=== PATIENT | female | born 1980 | race Caucasian/White ===

== ENCOUNTER 2017-09-13 18:50 | Inpatient (IN) | payer OTHER ==
[~2017-09-13] VITALS: Ht 162.6 cm; Wt 97.1 kg
[2017-09-13] MEDS ORDERED: TERBUTALINE 1 MG/ML VIAL SUBQ ONE (20:19)
[2017-09-13] MEDS: TERBUTALINE 1 MG/ML VIAL SUBQ SCH ×2 (20:43→20:51)
[2017-09-13 20:48] VITALS: BP 90/60
[2017-09-13] MEDS: LACTATED RINGERS 1,000 ML IV SCH (21:00)
[2017-09-13] MEDS ORDERED: BETAMETH ACET/BETAMETH NA PH 30 MG/5 ML VIAL IM ONE ×2 (21:00→21:06)
[2017-09-13] MEDS ORDERED: NALBUPHINE 10 MG/ML AMP ONE (21:33)
[2017-09-13] MEDS ORDERED: PROMETHAZINE 25 MG/ML VIAL ONE (21:33)
[2017-09-13] MEDS ORDERED: PROMETHAZINE 25 MG/ML VIAL IVP ONE (21:40)
[2017-09-13] MEDS ORDERED: NALBUPHINE 10 MG/ML AMP IVP PRN (21:40)
[2017-09-13] MEDS ORDERED: PREN-546 PO (21:52)
[2017-09-13 22:03] LABS: BASOPHILS % (AUTO) 0.2 % (0.0-2.0); EOSINOPHILS # (AUTO) 0.1 K/uL (0-0.4); EOSINOPHILS % (AUTO) 0.7 % (0.0-4.0); HEMOGLOBIN 10.3 g/dL (12.0-16.0); LYMPHOCYTES # (AUTO) 2.4 K/uL (2.5-16.5); LYMPHOCYTES % (AUTO) 23.5 % (20.5-51.1); MEAN CORPUSCULAR HEMOGLOBIN 30 pg (27-31); MEAN CORPUSCULAR HGB CONC 33 g/dL (33-37); MEAN CORPUSCULAR VOLUME 90.8 fL (80-94); MONOCYTES # (AUTO) 0.6 K/uL (0.8-1.0); MONOCYTES % (AUTO) 6.2 % (1.7-9.3); NEUTROPHILS # (AUTO) 7.2 K/uL (1.8-7.7); NEUTROPHILS % (AUTO) 69.4 % (42.2-75.2); PLATELET COUNT (AUTO) 218 K/uL (140-450); RED BLOOD CELL COUNT(AUTO) 3.41 MIL/uL (4.20-5.40); RED CELL DISTRIBUTION WIDTH 14.8 % (11.6-13.7); WHITE BLOOD COUNT (AUTO) 10.4 K/uL (4.8-10.8)
[2017-09-13 22:17] LABS: APPEARANCE,URINE SL CLOUDY (CLEAR); BILIRUBIN,URINE NEGATIVE (NEGATIVE); BLOOD, URINE NEGATIVE (NEGATIVE); COLOR,URINE YELLOW (YELLOW); LEUKOCYTE ESTERASE ,URINE NEGATIVE (NEGATIVE); NITRITE, URINE NEGATIVE (NEGATIVE); PH,URINE 6.5 (5.0-9.0); UGLUCOSE NEGATIVE (NEGATIVE)
[2017-09-13 22:18] LABS: ALBUMIN 2.2 g/dL (3.4-5.0); ANION GAP 15.7 (8-16); CARBON DIOXIDE 20.9 mmol/L (21-32); CREATININE 0.9 mg/dL (0.6-1.3); TOTAL BILIRUBIN 0.2 mg/dL (0.0-1.0)
[2017-09-13 22:33] LABS: POTASSIUM 2.6 mmol/L (3.5-5.1)
[2017-09-13] MEDS ORDERED: POTASSIUM CHLORIDE 10 MEQ TABER PO SCH (22:35)
[2017-09-13 22:40] LABS: RBC,URINE 0-5 (RARE) /HPF (0-5); WBC,URINE 0-5 (RARE) /HPF (0-5)
[2017-09-14] MEDS: TERBUTALINE 2.5 MG TAB PO SCH ×4 (00:11→12:15)
[2017-09-14] MEDS ORDERED: TERBUTALINE 2.5 MG TAB ONE ×4 (00:12→12:17)
--- NOTE | 2017-09-14 08:57 | NUR ---
PATIENT HAS BEEN SCREENED AND CATEGORIZED LOW NUTRITION RISK. PATIENT WILL BE SEEN WITHIN 7 DAYS OF ADMISSION. 09/20/[address]
[2017-09-14] MEDS ORDERED: BETAMETH ACET/BETAMETH NA PH 30 MG/5 ML VIAL IM SCH (09:10)
[2017-09-14] MEDS ORDERED: BETAMETH ACET/BETAMETH NA PH 30 MG/5 ML VIAL IM ONE (09:36)
[2017-09-14] MEDS: LACTATED RINGERS 1,000 ML IV SCH (13:08)
[2017-09-14] MEDS ORDERED: BRE5 PO (15:03)
== END 2017-09-14 16:15 | disposition home or self-care (01) | DRG 563 ==
LOC: MLD 18:50
PROVIDERS: ADMIT Obstetrics & Gynecology; ATTEND Obstetrics & Gynecology
DX: O60.03 Preterm labor without delivery, third trimester (principal); O34.211 Maternal care for low transverse scar from previous cesarean delivery; Z3A.35 35 weeks gestation of pregnancy
CPT/HCPCS: 36415; 76805; 80053; 81001; 85025; 85379; 85384; 85610; 85730; 87086; J0702; J2300; J2550; J3105; J7120; Q0092

== ENCOUNTER 2017-09-25 14:29 | Inpatient (IN) | payer OTHER ==
[~2017-09-25] VITALS: Ht 152.4 cm; Wt 96.6 kg
[~2017-09-25 14:29] MED LIST: BRE5 PO; PREN-546 PO
[2017-09-25 15:11] VITALS: BP 107/68
== END 2017-09-25 16:38 | disposition home or self-care (01) | DRG 566 ==
LOC: MLD 14:29
PROVIDERS: ADMIT Obstetrics & Gynecology; ATTEND Obstetrics & Gynecology
DX: O26.893 Other specified pregnancy related conditions, third trimester (principal); Z3A.00 Weeks of gestation of pregnancy not specified
CPT/HCPCS: 59025; 76815; 81000; 87070; Q0092

== ENCOUNTER 2017-09-28 07:59 | Inpatient (IN) | payer OTHER ==
[~2017-09-28] VITALS: Ht 160 cm; Wt 96.6 kg
[2017-09-28] MEDS ORDERED: LACTATED RINGERS 1,000 ML IV SCH (08:17)
[2017-09-28] MEDS ORDERED: CITRIC ACID/SODIUM CITRATE 30 ML UDC PO SCH (08:20)
[2017-09-28] MEDS ORDERED: CEFAZOLIN SODIUM 2 GM/D5W PM 50 ML IV SCH (08:35)
[2017-09-28 09:20] VITALS: BP 135/80
[2017-09-28 09:22] LABS: BASOPHILS % (AUTO) 0.4 % (0.0-2.0); EOSINOPHILS % (AUTO) 0.5 % (0.0-4.0); HEMATOCRIT 32.7 % (36-48); HEMOGLOBIN 10.9 g/dL (12.0-16.0); LYMPHOCYTES # (AUTO) 1.2 K/uL (2.5-16.5); LYMPHOCYTES % (AUTO) 15.7 % (20.5-51.1); MEAN CORPUSCULAR HEMOGLOBIN 30 pg (27-31); MEAN CORPUSCULAR HGB CONC 33 g/dL (33-37); MEAN CORPUSCULAR VOLUME 90.3 fL (80-94); MONOCYTES # (AUTO) 0.6 K/uL (0.8-1.0); NEUTROPHILS # (AUTO) 5.9 K/uL (1.8-7.7); NEUTROPHILS % (AUTO) 75.4 % (42.2-75.2); PLATELET COUNT (AUTO) 229 K/uL (140-450); RED BLOOD CELL COUNT(AUTO) 3.62 MIL/uL (4.20-5.40); RED CELL DISTRIBUTION WIDTH 14.8 % (11.6-13.7); WHITE BLOOD COUNT (AUTO) 7.9 K/uL (4.8-10.8)
[2017-09-28 09:32] LABS: BILIRUBIN,URINE NEGATIVE (NEGATIVE); BLOOD, URINE NEGATIVE (NEGATIVE); NITRITE, URINE NEGATIVE (NEGATIVE); PH,URINE 6.5 (5.0-9.0); UGLUCOSE NEGATIVE (NEGATIVE)
[2017-09-28 09:34] LABS: APPEARANCE,URINE SLIGHTLY CLOUDY (CLEAR); COLOR,URINE YELLOW (YELLOW); LEUKOCYTE ESTERASE ,URINE 4+ (NEGATIVE)
[2017-09-28 09:40] LABS: RBC,URINE 0-5 (RARE) /HPF (0-5); WBC,URINE 20-60 /HPF (0-5)
[2017-09-28 09:50] LABS: ALBUMIN 2.3 g/dL (3.4-5.0); ANION GAP 13.2 (8-16); CARBON DIOXIDE 23.6 mmol/L (21-32); CREATININE 0.7 mg/dL (0.6-1.3); TOTAL BILIRUBIN 0.4 mg/dL (0.0-1.0)
[2017-09-28 09:53] LABS: POTASSIUM 2.8 mmol/L (3.5-5.1)
[2017-09-28] MEDS ORDERED: OXYTOCIN 10 UNITS/ML VIAL ONE ×2 (10:28→16:46)
[2017-09-28] MEDS ORDERED: KCL 20 MEQ/WATER INJ PREMIX 100 ML IV SCH ×2 (11:00→15:00)
--- NOTE | 2017-09-28 11:21 | NUR ---
PATIENT HAS BEEN SCREENED AND CATEGORIZED LOW NUTRITION RISK. PATIENT WILL BE SEEN WITHIN 7 DAYS OF ADMISSION. 10/04/[address]
[2017-09-28] MEDS ORDERED: TERBUTALINE 1 MG/ML VIAL SUBQ ONE (11:24)
[2017-09-28] MEDS ORDERED: TERBUTALINE 1 MG/ML VIAL SUBQ SCH (11:25)
[2017-09-28] MEDS ORDERED: MORPHINE PRES FREE 2 MG/2 ML 2 mL UD SYRINGE ONE (14:34)
[2017-09-28] MEDS ORDERED: BUPIVACAINE/DEXT 0.75% SPINAL 2 ML AMP INJ ONE (14:34)
[2017-09-28] MEDS ORDERED: fentaNYL 0.05 MG/ML VIAL ONE (14:34)
[2017-09-28] MEDS ORDERED: KETOROLAC 60 MG/2 ML VIAL IM PRN (15:05)
[2017-09-28] MEDS ORDERED: NALOXONE 0.4 MG/ML VIAL IVP PRN ×2 (15:05)
[2017-09-28] MEDS ORDERED: ONDANSETRON 4 MG/2 ML VIAL IVP PRN (15:05)
[2017-09-28] MEDS ORDERED: NALBUPHINE 10 MG/ML AMP IVP PRN (15:05)
[2017-09-28] MEDS ORDERED: diphenhydrAMINE 50 MG/ML VIAL IVP PRN (15:05)
[2017-09-28] MEDS ORDERED: KETAMINE 500 MG/5 ML VIAL ONE (16:24)
[2017-09-28] MEDS ORDERED: diphenhydrAMINE 50 MG/ML VIAL ONE (17:20)
[2017-09-28] MEDS ORDERED: OXYTOCIN 20 UNITS/LR PREMIX 1,000 ML IV ONE (17:20)
[2017-09-28] MEDS: ONDANSETRON 4 MG/2 ML VIAL IVP PRN (17:45)
[2017-09-28] MEDS ORDERED: ONDANSETRON 4 MG/2 ML VIAL ONE (17:46)
[2017-09-28] MEDS ORDERED: BISACODYL 5 MG TABEC PO SCH (18:23)
[2017-09-28] MEDS ORDERED: DOCUSATE SODIUM 100 MG GELCAP PO SCH (18:26)
[2017-09-28] MEDS ORDERED: HYDROmorphone 1 MG/ML AMP IVP PRN (18:30)
[2017-09-28] MEDS ORDERED: SIMETHICONE 80 MG TAB.CHEW PO SCH (18:36)
[2017-09-28] MEDS ORDERED: MEASLES, MUMPS, AND RUBELLA 1 VIAL SQVAC PRN (20:00)
[2017-09-28] MEDS: OXYTOCIN 20 UNITS in LACTATED RINGERS 1,000 ML IV SCH (21:08)
[2017-09-28] MEDS: CEFAZOLIN SODIUM 2 GM/D5W PM 50 ML IV SCH (22:52)
[2017-09-29] MEDS ORDERED: OXYTOCIN 20 UNITS/LR PREMIX 1,000 ML IV ONE (05:55)
[2017-09-29] MEDS: OXYTOCIN 20 UNITS in LACTATED RINGERS 1,000 ML IV SCH ×2 (05:56→15:15)
[2017-09-29] MEDS: CEFAZOLIN SODIUM 2 GM/D5W PM 50 ML IV SCH ×2 (07:03→15:45)
[2017-09-29 11:16] LABS: BASOPHILS % (AUTO) 0.3 % (0.0-2.0); EOSINOPHILS % (AUTO) 0.4 % (0.0-4.0); HEMATOCRIT 29.5 % (36-48); HEMOGLOBIN 9.9 g/dL (12.0-16.0); LYMPHOCYTES % (AUTO) 7.7 % (20.5-51.1); MEAN CORPUSCULAR HEMOGLOBIN 30 pg (27-31); MEAN CORPUSCULAR HGB CONC 34 g/dL (33-37); MEAN CORPUSCULAR VOLUME 90.9 fL (80-94); MONOCYTES # (AUTO) 0.8 K/uL (0.8-1.0); MONOCYTES % (AUTO) 6.1 % (1.7-9.3); NEUTROPHILS # (AUTO) 10.7 K/uL (1.8-7.7); NEUTROPHILS % (AUTO) 85.5 % (42.2-75.2); PLATELET COUNT (AUTO) 174 K/uL (140-450); RED BLOOD CELL COUNT(AUTO) 3.25 MIL/uL (4.20-5.40); RED CELL DISTRIBUTION WIDTH 15.1 % (11.6-13.7); WHITE BLOOD COUNT (AUTO) 12.5 K/uL (4.8-10.8)
[2017-09-29] MEDS: KETOROLAC 30 MG/ML VIAL IVP PRN ×2 (12:03→19:56)
[2017-09-29] MEDS: ONDANSETRON 4 MG/2 ML VIAL IVP PRN (12:14)
[2017-09-29] MEDS ORDERED: ACETAMINOPHEN 325 MG TAB PO PRN (22:00)
[2017-09-30] MEDS: KETOROLAC 30 MG/ML VIAL IVP PRN (04:06)
[2017-09-30] MEDS ORDERED: SODIUM PHOSPHATE 118 ML ENEM RC PRN (08:00)
[2017-09-30] MEDS ORDERED: oxyCODONE/APAP 5/325 MG 1 TAB TAB PO PRN (08:00)
[2017-09-30] MEDS: BISACODYL 5 MG TABEC PO SCH ×2 (09:00→09:28)
[2017-09-30] MEDS: DOCUSATE SODIUM 100 MG GELCAP PO SCH (09:29)
[2017-09-30] MEDS: SIMETHICONE 80 MG TAB.CHEW PO SCH ×2 (09:30→18:30)
[2017-09-30] MEDS: IBUPROFEN 600 MG TAB PO PRN ×2 (10:53→18:33)
[2017-10-01] MEDS: IBUPROFEN 600 MG TAB PO PRN ×3 (02:37→20:37)
[2017-10-01] MEDS: SIMETHICONE 80 MG TAB.CHEW PO SCH ×2 (08:58→17:16)
[2017-10-01] MEDS: DOCUSATE SODIUM 100 MG GELCAP PO SCH (08:58)
[2017-10-01] MEDS ORDERED: oxyCODONE/APAP 5/325 MG 1 TAB TAB PO PRN ×2 (09:25→10:15)
[2017-10-01] MEDS: BISACODYL 5 MG TABEC PO SCH (09:29)
[2017-10-01] MEDS ORDERED: IBUPROFEN 600 MG TAB PO PRN (10:00)
[2017-10-02] MEDS: IBUPROFEN 600 MG TAB PO PRN ×2 (06:08→13:08)
[2017-10-02] MEDS: SIMETHICONE 80 MG TAB.CHEW PO SCH ×3 (09:14→17:13)
[2017-10-02] MEDS: BISACODYL 5 MG TABEC PO SCH (09:14)
[2017-10-02] MEDS: DOCUSATE SODIUM 100 MG GELCAP PO SCH (09:14)
[2017-10-02] MEDS ORDERED: IBUP-1842 PO (21:15)
[2017-10-02] MEDS ORDERED: FERR325E14 PO (21:17)
== END 2017-10-02 22:35 | disposition home or self-care (01) | DRG 540 ==
LOC: MLD 07:59 → MFCC 14:54
PROVIDERS: ADMIT Obstetrics & Gynecology; ATTEND Obstetrics & Gynecology
PROC: 0UB70ZZ Excision of Bilateral Fallopian Tubes, Open Approach (ICD-10-PCS; 2017-09-28)
PROC: 10D00Z1 Extraction of Products of Conception, Low, Open Approach (ICD-10-PCS; principal; 2017-09-28 11:30)
PROC: 3E0234Z Introduction of Serum, Toxoid and Vaccine into Muscle, Percutaneous Approach (ICD-10-PCS; 2017-09-30)
DX: O34.211 Maternal care for low transverse scar from previous cesarean delivery (principal); Z23 Encounter for immunization; Z37.0 Single live birth; Z3A.37 37 weeks gestation of pregnancy; Z30.2 Encounter for sterilization
CPT/HCPCS: 36415; 51702; 76815; 80053; 81001; 84132; 85025; 86592; 86886; 86900; 86901; 87081; 87086; 88302; 90707; 90715; J0690; J1170; J1200; J1885; J2270; J2405; J2590; J3010; J3105; J3480; J3490; J7120; Q0092